=== PATIENT | male | born 1990 | race Caucasian/White ===

== ENCOUNTER 2016-10-20 14:26 | Emergency (ER) | payer OTHER ==
[~2016-10-20] VITALS: Ht 172.7 cm; Wt 83.9 kg
--- NOTE | ~2016-10-20 | EKG ---
[address] [place] [address] ELECTROCARDIOGRAM REPORT Name: MESHA FRASER [facility] [id number] Admission: 10/20/16 Attend Phys: Discharge: 10/20/16 Date of : 86 Report #: [id number] THIS REPORT FOR: //name// [facility] ED Test Date: 2016-10-20 Test Time: 14:55:44 Pat Name: MESHA FRASER Department: Room: Gender: Host/Hostess Head: NELSON : 1990 Requested By: Leonel Abdullahi Order Number: [id number] MD: Ebenezer Umana Measurements Intervals [place] Rate: 76 P: 73 CO: 186 QRS: 50 QRSD: 102 T: 30 QT: 367 QTc: 413 Interpretive Statements Sinus rhythm Normal tracing No previous ECG available for comparison Electronically Signed On 10-21-2016 17:00:16 CDT by Ebenezer Umana [email or web address] <ELECTRONICALLY SIGNED> By: Ebenezer Umana MD, [facility] 10/21/16 1700 1455 1455 Ebenezer Umana MD, FACC /EPI
[2016-10-20 15:12] LABS: ABSOLUTE NEUTROPHILS 3.7 thou/uL (1.4-8.2); BASOPHILS 1.4 % (0.0-2.0); EOSINOPHILS 4.1 % (0.0-3.0); HEMATOCRIT 46.7 % (42.0-52.0); HEMOGLOBIN 16.3 gm/dL (14.0-18.0); LYMPHOCYTES 34.2 % (24.0-44.0); MANUAL DIFF NO; MCHC 34.9 g/dL (28.0-37.0); MCV 86.2 fL (80.0-100.0); MONOCYTES 6.9 % (1.0-8.0); PLATELET COUNT 268 thou/uL (150-400); POLYS 53.4 % (36.0-66.0); RBC 5.41 mil/uL (4.50-6.00); RDW 12.8 % (10.5-14.5); WBC 6.9 thou/uL (4.0-11.0)
[2016-10-20 15:21] LABS: ANION GAP 7 mmol/L (7-16); BUN 15 mg/dL (7-18); CALCIUM 9.6 mg/dL (8.5-10.1); CHLORIDE 105 mmol/L (98-107); CO2 27 mmol/L (21-32); CREATININE 1.1 mg/dL (0.7-1.3); GLUCOSE 119 mg/dL (74-106); POTASSIUM 4.1 mmol/L (3.5-5.1); SODIUM 139 mmol/L (136-145)
[2016-10-20 15:30] LABS: TROPONIN-I < 0.04 ng/mL (<0.04-0.07)
[2016-10-20 16:57] VITALS: BP 123/76
== END 2016-10-20 16:24 | disposition home or self-care (01) ==
LOC: ER 14:26
PROVIDERS: Emergency Medicine
DX: R07.89 Other chest pain (principal); F10.99 Alcohol use, unspecified with unspecified alcohol-induced disorder